=== PATIENT | male | born 1980 | race African-American/Black ===

== ENCOUNTER 2016-05-24 06:46 | Emergency (ER) | payer MEDICAID | END 2016-05-24 07:48 | disposition left against medical advice (07) | LOC: EMS 06:47 | DX: R60.9 Edema, unspecified (principal); F17.210 Nicotine dependence, cigarettes, uncomplicated; Z53.21 Procedure and treatment not carried out due to patient leaving prior to being seen by health care provider ==

== ENCOUNTER 2023-01-28 14:23 | Emergency (ER) | payer MEDICAID | END 2023-01-28 15:11 | disposition left against medical advice (07) | LOC: EMS 14:35 | DX: Z53.21 Procedure and treatment not carried out due to patient leaving prior to being seen by health care provider (principal) ==